=== PATIENT | female | born 2000 | race Caucasian/White ===

== ENCOUNTER 2019-12-31 19:13 | Emergency (ER) | payer MEDICARE, MEDICAID, SELFPAY ==
[2019-12-31 19:19] VITALS: BP 141/72; PULSE 99; RESP 19; TEMP 36.2; O2SAT 100
--- NOTE | 2019-12-31 19:49 | ED.BACK ---
HPI - Back Pain/Injury General Chief Complaint: Back Pain/Injury Stated Complaint: 5 weeks preg, back pain Time Seen by Provider: 12/31/19 19:37 History of Present Illness HPI Narrative: Bilateral midback pain. Present for quite some time. Worse over the past few days. No radiation. Worse with movment. Feels like pain from previous kidney infection. No dysuria, hematuria, fever, nausea. She is about five weeks . No abdominal pain, vaginal bleeding, discharge. Related Data Allergies Allergy/AdvReac Type Severity Reaction Status Date / Time No Known Allergies Allergy Verified 12/31/19 19:25 Review of Systems Review of Systems: All systems reviewed & are unremarkable except as noted in HPI and below Constitutional: Constitutional: Denies fever(s) and Denies weakness Cardiovascular: Cardiovascular: Denies chest pain Respiratory: Respiratory: Denies dyspnea Gastrointestinal: Gastrointestinal: Denies abdominal pain, Denies nausea and Denies vomiting Genitourinary: Genitourinary: Denies abnormal vaginal bleeding, Denies hematuria, Reports nocturia, Denies dysuria and Denies vaginal discharge Musculoskeletal: Musculoskeletal: Reports back pain Neurologic: Denies numbness and Denies weakness [facility] Social History Social History (Updated 01/01/20 @ 00:39 by Vinay Zheng MD) Smoking status: Never smoker Gender identity (if verbalized by the patient): Female Exam Const: General: healthy appearing, no acute distress and alert Nutritional Appearance: obese Orientation/consciousness: patient oriented x3 HENMT: Head: normal to inspection Resp: Effort & Inspection: normal respiratory effort Auscultation: clear to auscultation bilaterally Cardio: Rate: regular rate Rhythm: regular rhythm GI: Inspection: non-distended Other: Nontender Back/Spine/Pelvis: Back: no CVA tenderness Other: Thoracic paraspinal tenderness bilaterally. Neuro: General: patient oriented x3 and moves all extremities Speech: normal speech Extrem: General: normal to inspection Course Vital Signs Vital signs: Vital Signs Temperature 36.2 C L 12/31/19 19:19 Pulse Rate 99 12/31/19 19:19 Respiratory Rate 19 12/31/19 19:19 Blood Pressure 141/72 H 12/31/19 19:19 Pulse Oximetry 100 12/31/19 19:19 Temperature 36.2 C L 12/31/19 19:19 Pulse Rate 78 12/31/19 20:51 Respiratory Rate 18 12/31/19 20:51 Blood Pressure 138/72 12/31/19 20:51 Pulse Oximetry 99 12/31/19 20:51 MDM - Back Pain/Injury MDM Narrative Medical decision making narrative: Bedside Ultrasound consistent with early IUP. Possibly 6-8 weeks. No pole or FHR seen. No indication for trasvaginal US at this time UA negative for infection. Pain seems muscular. Differential Diagnosis Differential diagnosis: Likely renal colic, pyelonephritis and thoracic back pain Medical Records Attestation: I reviewed the patient's medical records. Lab Data Attestation: I reviewed the patient's lab results. Labs: Lab Results 12/31/19 Range/Units 19:44 Urine Color Yellow (Yellow) Urine Appearance Cloudy H (Clear) Urine pH 6.0 (5.0-9.0) Ur Specific [place] 1.021 (1.001-1.035) Urine Protein Negative (Negative) mg/dL Urine Glucose (UA) Negative (Negative) mg/dL Urine Ketones Negative (Negative) mg/dL Ur Blood (Man) Negative (Negative) Urine Nitrate Negative (Negative) Urine Bilirubin Negative (Negative) Urine Urobilinogen Negative (<2.0) mg/dL Leukocyte Esterase Rfl Trace H (Negative) LEWIS/UL Urine RBC 0-2 (0-2) /hpf Urine WBC 0-3 /hpf Ur Squamous Epith Cells Many H (Few) /hpf Urine Bacteria Trace /hpf Urine Mucus Rare /lpf Discharge Plan Discharge Clinical Impression: Back pain, thoracic Patient Disposition: Home, Self-Care Condition: Stable Instructions: Back Pain (ED) Prescriptions: New cyclobenzaprine 10 mg tablet 10 mg PO TID PRN (Reason: mu
[2019-12-31 19:59] LABS: Add Urine Microscopic? YES; Appearance Urine Cloudy (Clear); Bacteria Urine Trace /hpf; Bilirubin Urine Negative (Negative); Blood Urine Negative (Negative); Color Urine Yellow (Yellow); Glucose Urine UA Negative (Negative); Ketones Urine Negative (Negative); Leukocyte Esterase Ur Trace LEU/UL (Negative); Mucus Urine Rare /lpf; Nitrate Urine Negative (Negative); Protein Urine Negative (Negative); RBC Urine 0-2 /hpf (0-2); Specific Grav Ur 1.021 (1.001-1.035); Squamous Epithelial Cell Urine Many /hpf (Few); Urobilinogen Urine Negative mg/dL (<2.0); WBC Urine 0-3 /hpf
[2019-12-31] MEDS: CYCLOBENZAPRINE HCL 10 MG TABLET PO (20:45)
[2019-12-31 20:51] VITALS: BP 138/72; PULSE 78; RESP 18; O2SAT 99
== END 2019-12-31 20:53 | disposition home or self-care (01) ==
PROVIDERS: Emergency Provider Emergency Medicine
DX: M54.6 Pain in thoracic spine (principal)
CPT/HCPCS: 81001; 99283; A9270

== ENCOUNTER 2020-03-07 15:27 | Emergency (ER) | payer MEDICARE, MEDICAID, SELFPAY ==
[2020-03-07] VITALS (11 sets, daily range): BP systolic 122–149; BP diastolic 73–82; PULSE 82–96; RESP 16–18; TEMP 36.6–36.8; O2SAT 98–100
--- NOTE | 2020-03-07 16:40 | ED.ABDPAIN ---
HPI - Abdominal Pain General Chief Complaint: Abdominal Pain Stated Complaint: 15 WEEKS , CRAMPING Time Seen by Provider: 03/07/20 15:54 History of Present Illness HPI narrative: Patient is a 20-year-old female who presents ER with lower abdominal cramping. She is 15 weeks . She sees an OB at [facility]. She reports [place] when she started having the cramping. No vaginal bleeding or leakage of fluid. She has no urinary symptoms. She reports she had some eggs today and also had some water. No fevers or chills or sweats. Does not take any pain medication. Pain does radiate towards the back. She confirms that she has had a ultrasound showing an intrauterine . Related Data Home Medications Medication Instructions Recorded Confirmed Pre-F Vitamin 1 tablet DAILY 03/07/20 03/07/20 Allergies Allergy/AdvReac Type Severity Reaction Status Date / Time cat dander Allergy Difficulty Verified 03/07/20 16:05 Breathing prochlorperazine Allergy Hives Verified 03/07/20 16:05 [From Compazine] lurasidone AdvReac Nausea Verified 03/07/20 16:05 Review of Systems Review of Systems: All systems reviewed & are unremarkable except as noted in HPI and below Constitutional: Constitutional: Denies chills, Denies fever(s) and Denies weakness Gastrointestinal: Gastrointestinal: Reports abdominal pain, Denies diarrhea, Denies nausea and Denies vomiting Genitourinary: Genitourinary: Denies abnormal vaginal bleeding, Denies nocturia, Denies dysuria and Denies vaginal discharge PMFSH Past Medical History Medical History (Updated 03/07/20 @ 18:20 by Gold Segovia MD) Healthy female adult Surgical History Surgical History (Updated 03/07/20 @ 16:46 by Gold Segovia MD) No history of previous surgery Social History Social History (Updated 01/01/20 @ 00:39 by Vinay Zheng MD) Smoking status: Never smoker Gender identity (if verbalized by the patient): Female Exam Narrative: Exam Narrative: GENERAL: Well-appearing, well-nourished, and in no acute distress. HEAD: Normocephalic, atraumatic. CHEST: Clear to auscultation. No respiratory distress. HEART: Regular rate and rhythm. Normal peripheral pulses. ABDOMEN: Soft, nontender, nondistended. EXTREMITIES: Normal range of motion. No edema. SKIN: Warm, dry, no rash. NEURO: Alert and oriented x3. PSYCH: Normal mood and affect. Course Course Emergency Course: Patient informed results. Feels better after Tylenol and IV fluid. heart tones identified. Discharge home. Vital Signs Vital signs: Vital Signs Temperature 98.2 F 03/07/20 15:52 Pulse Rate 82 03/07/20 15:52 Respiratory Rate 17 03/07/20 15:52 Blood Pressure 149/82 H 03/07/20 15:52 Pulse Oximetry 100 03/07/20 15:52 Temperature 97.8 F 03/07/20 15:59 Pulse Rate 82 03/07/20 15:52 Respiratory Rate 18 03/07/20 15:59 Blood Pressure 122/73 03/07/20 16:16 Pulse Oximetry 100 03/07/20 16:30 MDM - Abdominal Pain Lab Data Result diagrams: 03/07/20 16:35 03/07/20 16:35 Labs: Lab Results 03/07/20 03/07/20 03/07/20 Range/Units 16:35 16:35 17:24 WBC 7.6 (4.5-10.0) K/mm3 RBC 4.07 L (4.2-5.4) M/mm3 Hgb 12.6 (12.0-15.0) g/dL Hct 36.0 L (37.0-47.0) % MCV 88.5 (80-100) fl MCH 31.0 (26-34) pg MCHC 35.0 (32-36) g/dl RDW 12.0 (11.5-14.5) % Plt Count 242 (150-375) k/mm3 MPV 9.6 (7.4-10.4) fl Immature Gran % (Auto) 0.5 (0-0.5) % Neut % (Auto) 61.8 (45.5-73.1) % Lymph % (Auto) 27.4 (18.3-44.2) % [place] % (Auto) 7.2 (2.6-8.5) % Eos % (Auto) 2.6 (0-4.4) % Baso % (Auto) 0.5 (0.2-1.2) % Lymph # (Auto) 2.09 (0.9-3.2) K/mm3 [place] # (Auto) 0.6 (0.1-0.6) K/mm3 Eos # (Auto) 0.2 (0-0.3) K/mm3 Baso # (Auto) 0.0 (0.0-0.1) K/mm3 Abs Immat Gran (auto) 0.04 H
[2020-03-07 16:42] LABS: Basophils Percent Auto 0.5 % (0.2-1.2); Eosinophils Absolute Auto 0.2 K/mm3 (0-0.3); Eosinophils Percent Auto 2.6 % (0-4.4); Hemoglobin 12.6 g/dL (12.0-15.0); Immature Granulocyte Absolute 0.04 K/mm3 (0.00-0.031); Immature Granulocyte Percent A 0.5 % (0-0.5); Lymphocytes Absolute Auto 2.09 K/mm3 (0.9-3.2); Lymphocytes Percent Auto 27.4 % (18.3-44.2); Mean Corpuscular Volume 88.5 fl (80-100); Mean Platelet Volume 9.6 fl (7.4-10.4); Monocytes Absolute Auto 0.6 K/mm3 (0.1-0.6); Monocytes Percent Auto 7.2 % (2.6-8.5); Neutrophils Absolute Auto 4.7 K/mm3 (1.3-6.7); Neutrophils Percent Auto 61.8 % (45.5-73.1); Platelet Count Result 242 k/mm3 (150-375); Red Blood Count 4.07 M/mm3 (4.2-5.4); White Blood Count 7.6 K/mm3 (4.5-10.0)
[2020-03-07 16:53] LABS: Anion Gap 9 mmol/L (8-16); Blood Urea Nitrogen 9 mg/dL (7-17); Calcium 9.4 mg/dL (8.4-10.2); Carbon Dioxide 23 mmol/L (22-30); Chloride 105 mmol/L (98-107); Estimated CRCL calculation 209 ml/min; Estimated Glomerular Filt Rate > 60; Glucose 89 mg/dL (65-105); Potassium 3.8 mmol/L (3.4-5.0); Sodium 137 mmol/L (137-145)
[2020-03-07] MEDS: SODIUM CHLORIDE 0.9% IV 1,000 ML 999 ML IV CONT (16:58)
[2020-03-07] MEDS: ACETAMINOPHEN 500 MG TABLET 1000 MG PO (16:58)
--- NOTE | 2020-03-07 17:02 | PC.NURSE ---
patient given tylenol. IVF started. patient reminded we need urine specimen. ice water given. friend in room. call light in reach.
[2020-03-07 17:44] LABS: Add Urine Microscopic? YES; Appearance Urine Clear (Clear); Bacteria Urine Trace /hpf; Bilirubin Urine Negative (Negative); Blood Urine Negative (Negative); Color Urine Yellow (Yellow); Glucose Urine UA Negative (Negative); Ketones Urine 1+ mg/dL (Negative); Leukocyte Esterase Ur Trace LEU/UL (Negative); Mucus Urine Rare /lpf; Nitrate Urine Negative (Negative); Protein Urine Negative (Negative); RBC Urine 0-2 /hpf (0-2); Squamous Epithelial Cell Urine Many /hpf (Few); Urobilinogen Urine Negative mg/dL (<2.0)
== END 2020-03-07 18:47 | disposition home or self-care (01) ==
PROVIDERS: Emergency Provider Emergency Medicine
DX: O26.892 Other specified pregnancy related conditions, second trimester (principal); R10.2 Pelvic and perineal pain; O99.282 Endocrine, nutritional and metabolic diseases complicating pregnancy, second trimester; E86.0 Dehydration; Z3A.15 15 weeks gestation of pregnancy
CPT/HCPCS: 36415; 80048; 81001; 85025; 96360; 99283; A9270; J7030

== ENCOUNTER 2020-05-02 22:10 | Observation (INO) | payer MEDICARE, MEDICAID, SELFPAY ==
[2020-05-02 22:31] VITALS: BP 122/68; PULSE 86
[2020-05-02 22:44] VITALS: BP 111/78; PULSE 82
[2020-05-02 22:45] VITALS: BMI 41.1
--- NOTE | 2020-05-02 22:45 | LDADM ---
This patient, Lilliam Gomez, was admitted to OB Post 117 on 05/02/20 at 22:10. Plans for labor, pain management and were discussed with patient. Patient/family oriented to hospital policies and general routines including ID bracelet, bed and alarms, visiting hours, pain management, procedures, bathroom and other care routines, personal items, smoking policy, room service/diet and guest tray routines, infant security routines, and visiting hours. Patient/Family are encouraged to report perceived risks to care and to ask questions if they do not understand what they are told or what they should do. See OBIX for further documentation.
--- NOTE | 2020-05-02 23:15 | PC.NURSE ---
2209- pt came in c/o abd pain due to 14mo. old jumping on side of abdomen. pt states that she feels pulling in lower abdomen like round ligament pain and lower back pain. she also states that she really hasn't felt baby move a whole lot either. no complications with . no vaginal bleeding. 2237- Called Dr. Hamilton- informed of patient admission. pt sees Dr. Rolon at [facility]- was told to come to nearest hospital for eval. pt doing better since hearing heart tones. heart tones doppled- 150's. pt stated that she was just scared. pt ok to d/c home and to f/u with OB in am.
--- NOTE | 2020-05-30 20:09 | PM.OBTRLD ---
OB - Triage/Final Diagnosis Final Diagnosis (1) Abdominal pain: Code(s): R10.9 - Unspecified abdominal pain Status: Acute
== END 2020-05-02 23:15 | disposition home or self-care (01) ==
PROVIDERS: Admitting Provider Obstetrics & Gynecology; Visit Provider Obstetrics & Gynecology
DX: O26.899 Other specified pregnancy related conditions, unspecified trimester (principal); R10.9 Unspecified abdominal pain; Z3A.00 Weeks of gestation of pregnancy not specified
CPT/HCPCS: G0378; G0379

== ENCOUNTER 2020-06-11 14:20 | Observation (INO) | payer MEDICARE, MEDICAID, SELFPAY ==
[2020-06-11] VITALS (28 sets, daily range): BP systolic 105–115; BP diastolic 47–87; PULSE 78–107; RESP 20; TEMP 36.6–36.8; O2SAT 97–100; BMI 41.9
--- NOTE | 2020-06-11 14:40 | OBADM ---
This patient, Lilliam Gomez, admitted to the OB room 117 at 1420 for observation post fall and c/o shortness of breath. Patient/family oriented to hospital policies and general routines including ID bracelet, bed and alarms, visiting hours, pain management, procedures, bathroom and other care routines, personal items, smoking policy, room service/diet, and visiting hours. Patient/Family are encouraged to report perceived risks to care and to ask questions if they do not understand what they are told or what they should do.
--- NOTE | 2020-06-11 15:15 | ECG_ITS ---
Measurements Intervals Brick Rate: 79 P: 3 AL: 160 QRS: 32 QRSD: 93 T: 2 QT: 356 QTc: 409 Interpretive Statements SINUS RHYTHM BORDERLINE ST-T WAVE ABNORMALITY- INFERIOR LEADS BASELINE ARTIFACT- I, III, AVR, AVL, AVF, V1, V4 BORDERLINE ECG Electronically Signed On 06-15-2020 7:24:41 [employer] H[employer] INSPECTOR by Tyler Wilson D.O.
--- NOTE | 2020-06-11 15:35 | PC.NURSE ---
RT here performing nebulizer treatment on pt.
--- NOTE | 2020-06-11 15:37 | PC.NURSE ---
Cardiology in and EKG done.
[2020-06-11] MEDS: ACETAMINOPHEN 500 MG TABLET 1000 MG PO (17:02)
[2020-06-13 00:20] LABS: SARS-CoV-2 RNA PCR Negative
--- NOTE | 2020-06-18 07:35 | PM.OBTRLD ---
OB - Triage/Final Diagnosis Visit Information Date of evaluation: 06/11/20 Reason for evaluation: other Comments/Additional reasons for admission: I have assessed the risk for this patient, Lilliam Gomez, and determined that she would benefit from observation care, sob Evaluation Laboratory results: Laboratory Tests 06/11/20 15:40 SARS-CoV-2 RNA (RT-PCR) Negative
== END 2020-06-11 19:52 | disposition home or self-care (01) ==
PROVIDERS: Admitting Provider Obstetrics & Gynecology; Visit Provider Obstetrics & Gynecology
DX: O26.893 Other specified pregnancy related conditions, third trimester (principal); R06.02 Shortness of breath; Z3A.29 29 weeks gestation of pregnancy; Z20.822 Contact with and (suspected) exposure to COVID-19
CPT/HCPCS: 93005; 94640; A9270; C9803; G0378; G0379; U0003; U0005

== ENCOUNTER 2020-07-17 01:01 | Observation (INO) | payer MEDICARE, MEDICAID, SELFPAY ==
--- NOTE | 2020-07-17 01:01 | OBADM ---
This patient, Lilliam Gomez, admitted to the OB room Labor/Delivery/Recovery 105 for observation. Patient/family oriented to hospital policies and general routines including ID bracelet, bed and alarms, visiting hours, pain management, procedures, bathroom and other care routines, personal items, smoking policy, room service/diet, and visiting hours. Patient/Family are encouraged to report perceived risks to care and to ask questions if they do not understand what they are told or what they should do.
[2020-07-17 01:20] VITALS: BP 115/60; PULSE 172; RESP 20; TEMP 36.3
[2020-07-17 01:21] VITALS: PULSE 92
[2020-07-17 01:30] VITALS: BMI 42.3
--- NOTE | 2020-07-20 17:08 | PM.OBTRLD ---
OB - Triage/Final Diagnosis Visit Information Date of evaluation: 07/17/20 Reason for evaluation: threatened labor Comments/Additional reasons for admission: I have assessed the risk for this patient, Lilliam Gomez, and determined that she would benefit from observation care.
== END 2020-07-17 02:29 | disposition home or self-care (01) ==
PROVIDERS: Admitting Provider Obstetrics & Gynecology; Visit Provider Obstetrics & Gynecology
DX: O47.03 False labor before 37 completed weeks of gestation, third trimester (principal); Z3A.34 34 weeks gestation of pregnancy
CPT/HCPCS: 84112; G0378; G0379

== ENCOUNTER 2020-08-12 05:11 | Observation (INO) | payer MEDICARE, MEDICAID, SELFPAY ==
[2020-08-12] VITALS (17 sets, daily range): BP systolic 110–122; BP diastolic 67–80; PULSE 72–158; TEMP 36.4; O2SAT 100; BMI 44.6
--- NOTE | 2020-08-12 07:55 | OBADM ---
This patient, Lilliam Gomez, admitted to the OB room 102 at 0511 for observation for contractions and back pain. Patient/family oriented to hospital policies and general routines including ID bracelet, bed and alarms, visiting hours, pain management, procedures, bathroom and other care routines, personal items, smoking policy, room service/diet, and visiting hours. Patient/Family are encouraged to report perceived risks to care and to ask questions if they do not understand what they are told or what they should do.
[2020-08-12] MEDS: ONDANSETRON HCL ODT 4 MG TABLET PO (07:59)
[2020-08-12] MEDS: ACETAMINOPHEN 500 MG TABLET 1000 MG PO (08:33)
--- NOTE | 2020-09-07 12:33 | PM.OBTRLD ---
OB - Triage/Final Diagnosis Visit Information Comments/Additional reasons for admission: I have assessed the risk for this patient, Lilliam Gomez, and determined that she would benefit from observation care. Final Diagnosis (1) Pelvic pain: Code(s): R10.2 - Pelvic and perineal pain Status: Acute
== END 2020-08-12 11:09 | disposition home or self-care (01) ==
PROVIDERS: Admitting Provider Obstetrics & Gynecology; Visit Provider Obstetrics & Gynecology
DX: O26.893 Other specified pregnancy related conditions, third trimester (principal); R10.2 Pelvic and perineal pain; Z3A.37 37 weeks gestation of pregnancy
CPT/HCPCS: A9270; G0378; G0379

== ENCOUNTER 2020-08-20 05:52 | Inpatient (IN) | payer MEDICARE, MEDICAID, SELFPAY ==
[2020-08-20] VITALS (115 sets, daily range): BP systolic 58–149; BP diastolic 29–112; PULSE 76–233; RESP 20; TEMP 36.5–37.1; O2SAT 98–100; BMI 44.6
[2020-08-20] MEDS: LACTATED RINGERS 1,000 ML 125 ML IV CONT ×4 (06:50→23:04)
[2020-08-20] MEDS: OXYTOCIN 30 UNITS/NS 500 ML 30 UNITS/500 ML BAG IV CONT (06:51)
[2020-08-20 07:05] LABS: Basophils Percent Auto 0.4 % (0.2-1.2); Eosinophils Absolute Auto 0.1 K/mm3 (0-0.3); Eosinophils Percent Auto 1.2 % (0-4.4); Hematocrit 31.6 % (37.0-47.0); Hemoglobin 10.6 g/dL (12.0-15.0); Immature Granulocyte Percent A 1.1 % (0-0.5); Lymphocytes Absolute Auto 2.12 K/mm3 (0.9-3.2); Lymphocytes Percent Auto 23.7 % (18.3-44.2); Mean Corpuscular HGB Conc 33.5 g/dl (32-36); Mean Corpuscular Hemoglobin 28.6 pg (26-34); Mean Corpuscular Volume 85.2 fl (80-100); Mean Platelet Volume 9.6 fl (7.4-10.4); Monocytes Absolute Auto 0.8 K/mm3 (0.1-0.6); Monocytes Percent Auto 9.4 % (2.6-8.5); Neutrophils Absolute Auto 5.7 K/mm3 (1.3-6.7); Neutrophils Percent Auto 64.2 % (45.5-73.1); Platelet Count Result 218 k/mm3 (150-375); Red Blood Count 3.71 M/mm3 (4.2-5.4); Red Cell Distribution Width 12.5 % (11.5-14.5); White Blood Count 8.9 K/mm3 (4.5-10.0)
--- NOTE | 2020-08-20 07:05 | LDADM ---
This patient, Lilliam Gomez, was admitted to Labor/Delivery/Recovery 103 on 08/20/20 at 05:52. Plans for labor, pain management and were discussed with patient. Patient/family oriented to hospital policies and general routines including ID bracelet, bed and alarms, visiting hours, pain management, procedures, bathroom and other care routines, personal items, smoking policy, room service/diet and guest tray routines, infant security routines, and visiting hours. Patient/Family are encouraged to report perceived risks to care and to ask questions if they do not understand what they are told or what they should do. See OBIX for further documentation.
--- NOTE | 2020-08-20 07:16 | WPDANESEPP ---
Anes - Eval Pre Procedure Procedure: Labor epidural Date/Time: 08/20/20 07:16 Surgeon: Cristopher Preop Diagnosis: pain during labor Pre Op Diagnosis: Induction of Labor Patient Data Age: 20 Gender: F Height: 1.73 m Weight: 133 kg Last Vital Signs Pulse 91 08/20/20 07:16 BP 127/81 08/20/20 07:16 Allergies Allergy/AdvReac Type Severity Reaction Status Date / Time cat dander Allergy Difficulty Verified 08/10/20 12:44 Breathing prochlorperazine Allergy Hives Verified 08/10/20 12:44 [From Compazine] lurasidone AdvReac Nausea Verified 08/10/20 12:44 Home Medications Medication Instructions Recorded Confirmed Type PNV cmb#95-ferrous fumarate-FA 1 tablet PO DAILY 06/11/20 08/12/20 History [] albuterol sulfate [Ventolin HFA] 2 puff INHALATION Q4H PRN 06/11/20 08/12/20 History sertraline 100 mg PO HS 06/11/20 08/12/20 History fluticasone propion-salmeterol 1 inh INHALATION PRN PRN 07/17/20 08/12/20 History Unisom (doxylamine) 25 mg PO HS PRN 08/10/20 08/12/20 History melatonin 10 mg PO HS PRN 08/12/20 08/12/20 History Laboratory Tests 08/20/20 08/20/20 08/20/20 06:47 06:47 06:47 WBC 8.9 K/mm3 K/mm3 (4.5-10.0) RBC 3.71 M/mm3 L M/mm3 (4.2-5.4) Hgb 10.6 g/dL L g/dL (12.0-15.0) Hct 31.6 % L % (37.0-47.0) MCV 85.2 fl fl (80-100) MCH 28.6 pg pg (26-34) MCHC 33.5 g/dl g/dl (32-36) RDW 12.5 % % (11.5-14.5) Plt Count 218 k/mm3 k/mm3 (150-375) MPV 9.6 fl fl (7.4-10.4) Immature Gran % (Auto) 1.1 % H % (0-0.5) Neut % (Auto) 64.2 % % (45.5-73.1) Lymph % (Auto) 23.7 % % (18.3-44.2) [place] % (Auto) 9.4 % H % (2.6-8.5) Eos % (Auto) 1.2 % % (0-4.4) Baso % (Auto) 0.4 % % (0.2-1.2) Lymph # (Auto) 2.12 K/mm3 K/mm3 (0.9-3.2) [place] # (Auto) 0.8 K/mm3 H K/mm3 (0.1-0.6) Eos # (Auto) 0.1 K/mm3 K/mm3 (0-0.3) Baso # (Auto) 0.0 K/mm3 K/mm3 (0.0-0.1) Abs Immat Gran (auto) 0.10 K/mm3 H K/mm3 (0.00-0.031) Absolute Neuts (auto) 5.7 K/mm3 K/mm3 (1.3-6.7) Absolute Nucleated RBC 0.0 K/mm3 K/mm3 (0.0-0.012) Nucleated RBC % 0.0 % % (0.0-0.2) RPR Pending Blood Type Pending Antibody Screen Pending Patient hx anesthesia problems: none Family hx anesthesia problems: none PMFSH Past Medical History Medical History (Updated 08/20/20 @ 07:19 by Trinidad Mclaughlin CRNA) Asthma Depression Healthy female adult Morbid obesity Surgical History Surgical History (Updated 03/07/20 @ 16:46 by Gold Segovia MD) No history of previous surgery Family History Family History (Updated 08/10/20 @ 12:47 by Polo Godoy RN) Mother Arthritis, rheumatoid Lupus Sibling Heart murmur Social History Social History (Updated 01/01/20 @ 00:39 by Vinay Zheng MD) Smoking status: Former smoker Substance use: never Gender identity (if verbalized by the patient): Female Spiritual care concerns: No Exam Day of Procedure 08/20/20 07:16
--- NOTE | 2020-08-20 09:58 | WPDOBADMIT ---
Obstetrics - Admit Note Admission Note: 20 y/o @ 39 weeks here for induction of labor. record reviewed. No pertinent additions to the history and/or any subsequent changes in the physical findings that are not consistent with the expected course of the were found. Additions to the history and/or subsequent changes in the physical findings follow. None.
--- NOTE | 2020-08-20 09:58 | PM.IMHP ---
H&P: HPI History of Present Illness Date/Time: 08/20/20 09:58 Chief Complaint: Term . Induction of labor. Review of Systems Review of Systems: All systems reviewed & are unremarkable except as noted in HPI and below PMFSH Past Medical History Medical History Asthma Depression Healthy female adult Morbid obesity Surgical History Surgical History No history of previous surgery Family History Family History Mother Arthritis, rheumatoid Lupus Sibling Heart murmur Social History Social History Smoking status: Former smoker Substance use: never Gender identity (if verbalized by the patient): Female Spiritual care concerns: No Comments complicated by polyhydramnios and LGA. Meds Home Medications and Allergies Home Medications Medication Instructions Recorded Confirmed Type PNV cmb#95-ferrous fumarate-FA 1 tablet PO DAILY 06/11/20 08/12/20 History [] albuterol sulfate [Ventolin HFA] 2 puff INHALATION Q4H PRN 06/11/20 08/12/20 History sertraline 100 mg PO HS 06/11/20 08/12/20 History fluticasone propion-salmeterol 1 inh INHALATION PRN PRN 07/17/20 08/12/20 History Unisom (doxylamine) 25 mg PO HS PRN 08/10/20 08/12/20 History melatonin 10 mg PO HS PRN 08/12/20 08/12/20 History Allergies Allergy/AdvReac Type Severity Reaction Status Date / Time cat dander Allergy Difficulty Verified 08/10/20 12:44 Breathing prochlorperazine Allergy Hives Verified 08/10/20 12:44 [From Compazine] lurasidone AdvReac Nausea Verified 08/10/20 12:44 Vital Signs Vital Signs - 24 hr 08/20/20 06:13 08/20/20 06:15 08/20/20 06:45 Temperature Pulse Rate 101 H 97 103 H Blood Pressure 132/75 123/72 119/73 08/20/20 06:51 08/20/20 07:01 08/20/20 07:16 Temperature 97.9 F Pulse Rate 96 91 Blood Pressure 114/76 127/81 08/20/20 07:30 08/20/20 07:45 08/20/20 08:16 Temperature Pulse Rate 115 H 90 91 Blood Pressure 118/87 123/66 128/83 08/20/20 08:31 08/20/20 08:45 08/20/20 09:00 Temperature Pulse Rate 94 86 120 H Blood Pressure 115/57 L 121/72 111/84 Exam Narrative: Exam Narrative: FHR category 1 Uterine contractions regular and soft in between U/S @ bedside verified vertex presentation Const: General: no acute distress Resp: Effort & Inspection: normal respiratory effort Auscultation: clear to auscultation bilaterally Cardio: Rate: regular rate Rhythm: regular rhythm Skin: General skin exam: normal color Neuro: General: gait normal Extrem: Right lower extremity: edema Left lower extremity: edema Psych: Mental Status: mental status grossly normal H&P: Results Labs Labs: Short CBC 08/20/20 Range/Units 06:47 WBC 8.9 (4.5-10.0) K/mm3 Hgb 10.6 L (12.0-15.0) g/dL Hct 31.6 L (37.0-47.0) % Plt Count 218 (150-375) k/mm3 Assessment and Plan Additional Plan Proceed with induction of labor. Controlled arom with MD present.
[2020-08-20 10:34] LABS: HIV 1/2 Ab P24 Ag Result Negative (Negative)
[2020-08-20 13:50] LABS: Rapid Plasma Reagin Non-Reactive (NonReactive)
[2020-08-20] MEDS: fentaNYL CITRATE INJ (*CRX) 100 MCG/2 ML VIAL 50 MCG IV PUSH (16:10)
[2020-08-20] MEDS: ONDANSETRON INJ 4 MG/2 ML VIAL IV PUSH (22:02)
[2020-08-21] VITALS (50 sets, daily range): BP systolic 80–156; BP diastolic 41–113; PULSE 80–141; RESP 16–20; TEMP 36.1–37.4; O2SAT 87–100
[2020-08-21] MEDS: OXYTOCIN 30 UNITS/NS 500 ML 30 UNITS/500 ML BAG 125 UNITS IV CONT (01:14)
--- NOTE | 2020-08-21 01:19 | PM.OBPRVD ---
OB - Delivery Note Procedure Delivery date: 08/21/20 events: Polyhydramnios Intrapartal events: None Induction method: AROM and per pitocin protocol Delivery monitor: external FHT, external uterine, internal FHT and internal uterine Route of delivery: Episiotomy description: None Laceration Description: Perineal - 1st Degree Anesthesia type: Epidural Narrative: Mother and baby in stable conditon. Cord gasses collected and handed off to staff. [place] Baby Date of : 08/21/20 Time of : 00:54 Weeks of gestation at delivery: 39 gender: Male Weight (pounds): 9 Weight (ounces): 6 presentation: vertex position: Right Occiput Anterior Placenta delivery description: Spontaneous cord vessel description: Nuchal Cord and Tight (Delivered through) score one minute: 7 score five minutes: 8
[2020-08-21] MEDS: ACETAMINOPHEN 325 MG TABLET 650 MG PO ×2 (02:23→21:54)
--- NOTE | 2020-08-21 03:37 | OBPPTRN ---
Patient transferred to post room #280 via wheelchair with in crib. Support is not present but will return in the morning - pt's grandma has second bracelet. Oriented to unit, room, information board, rooming in, admission packet and security measures. Patient verbalizes understanding.
[2020-08-21] MEDS: IBUPROFEN 600 MG TABLET PO ×3 (04:15→19:11)
[2020-08-21] MEDS: MULTIVIT/MIN/PREN/FOL AC/IRON TABLET 1 TAB PO (10:49)
--- NOTE | 2020-08-21 11:48 | P.PNOB_ITS ---
OB - PN: Subj Subjective Date/time seen: 08/21/20 11:48 Patient comments: no complaints baby status: doing well OB - PN: Obj Data Labs CBC & Chem 7: 08/20/20 06:47 Labs: Laboratory Results - last 24 hr 08/20/20 06:47 RPR Non-reactive OB - PN A/P Plan day: 1 Plan: routine care Time Spent With Patient Time: Total time spent is greater than 50% in coordination of care (as doc umented) at patient's floor/unit and/or counseling patient: Time with patient: less than 15 minutes Review of Systems Review of Systems: All systems reviewed & are unremarkable except as noted in HPI and below Exam Narrative: Exam Narrative: Fundus firm and vaginal flow controlled. No lower ext redness, warmth, or edema. Negative homans. Const: General: comfortable Chest: Breast/axilla inspection: normal inspection of the breasts Resp: Effort & Inspection: normal respiratory effort Cardio: Rate: regular rate GI: GI Palp: Yes Soft to palpation Psych: Appearance: grossly normal Affect: normal affect Attitude: cooperative Thought content: Yes Normal thought content present Judgement: Good judgement present (Psych)
[2020-08-21] MEDS: SERTRALINE HCL 50 MG TABLET 100 MG PO (21:49)
[2020-08-21] MEDS: TETANUS,DIPHTHERIA,AC PERTUSSIS ADULT (0.5 ML) BOOSTRIX IM (21:57)
--- NOTE | 2020-08-21 22:31 | PC.NURSE ---
Patient viewed the discharge video Mother & Baby Care, The First Two Weeks . Patient was given the opportunity and encouraged to ask questions. Patient verbalized understanding of information shared and has been given the mother/baby guide for home reference.
[2020-08-22 00:25] VITALS: BP 146/89; PULSE 86; RESP 18; TEMP 36.3; O2SAT 99
[2020-08-22 05:00] LABS: Hematocrit 29.2 % (37.0-47.0); Hemoglobin 9.4 g/dL (12.0-15.0)
[2020-08-22 07:00] VITALS: BP 139/70; PULSE 80; RESP 16; TEMP 36.1; O2SAT 99
[2020-08-22] MEDS: POLYSACCHARIDE IRON COMPLEX 150 MG CAPSULE PO (07:12)
[2020-08-22] MEDS: IBUPROFEN 600 MG TABLET PO (07:12)
[2020-08-22] MEDS: DOCUSATE SODIUM 100 MG CAPSULE PO (07:12)
[2020-08-22] MEDS: MULTIVIT/MIN/PREN/FOL AC/IRON TABLET 1 TAB PO (07:12)
[2020-08-22] MEDS: WITCH HAZEL 40 PADS 1 PAD TOPICAL (07:13)
[2020-08-22] MEDS: BENZOCAINE 20% AER SPR (*SP) 56 GM CAN 1 SPRAY TOPICAL (07:13)
--- NOTE | 2020-08-22 09:20 | PM.OBPNVD ---
OB - PN: Subj Subjective Date/time seen: 08/22/20 09:20 Patient comments: no complaints baby status: doing well OB - PN: Obj Data Labs CBC & Chem 7: 08/22/20 04:53 Labs: Laboratory Results - last 24 hr 08/22/20 04:53 Hgb 9.4 L Hct 29.2 L OB - PN A/P Plan day: 2 Plan: routine care and discharge home (F/U in 4 weeks) Time Spent With Patient Time: Total time spent is greater than 50% in coordination of care (as documented) at patient's floor/unit and/or counseling patient: Time with patient: less than 15 minutes Review of Systems Review of Systems: All systems reviewed & are unremarkable except as noted in HPI and below Exam Narrative: Exam Narrative: Fundus firm and vaginal flow controlled. No lower ext redness, warmth, or edema. Negative homans. Const: General: comfortable Chest: Breast/axilla inspection: normal inspection of the breasts Resp: Effort & Inspection: normal respiratory effort Cardio: Rate: regular rate GI: GI Palp: Yes Soft to palpation Psych: Appearance: grossly normal Affect: normal affect Attitude: cooperative Thought content: Yes Normal thought content present Judgement: Good judgement present (Psych)
--- NOTE | 2020-08-22 09:22 | PM.OBDSVD ---
DS: Admitting Diagnosis Admitting Diagnosis Admitting Diagnosis: Induction of labor DS: Discharge Diagnosis Discharge Diagnosis (1) Vaginal delivery: Code(s): O80 - Encounter for full-term uncomplicated delivery Status: Acute OB - DS: Summary OB Procedures : None OB Procedures Intrapartum: Spontaneous Vag Delivery OB Procedures: : None Time Spent with Patient Time attestation: Total time spent providing and/or coordinating discharge services: DS: Data Data Completed and Pending Pending studies at discharge: Pending at discharge 08/21/20 02:19 Surgical [PTH] Routine Labs on day of discharge: Labs from last 24 hours 08/22/20 04:53 Hgb 9.4 L Hct 29.2 L Discharge Plan Discharge Attending physician on discharge: Camilla Silverman Discharging Clinician: Camilla Silverman Patient Disposition: Home, Self-Care Activity: pelvic rest Diet: as tolerated Patient Instructions: Antibiotic Form Stand Alone Forms: General Discharge Information Follow-up/Referrals: Camilla Silverman, CNM [Certified Nurse Macadam Raker] - Discharge Medications: New polysaccharide iron complex 150 mg iron Capsule 150 mg PO BIDWM Qty: 60 RF: 0 Continued albuterol sulfate [Ventolin HFA] 90 mcg/actuation HFA aerosol inhaler 2 puff INHALATION Q4H PRN (Reason: Shortness Of Breath) RF: 0 sertraline 50 mg tablet 100 mg PO HS RF: 0 PNV cmb#[id number]-ferrous fumarate-FA [] 28 mg iron- 800 mcg Tablet 1 tablet PO DAILY RF: 0 fluticasone propion-salmeterol 113-14 mcg/actuation aerosol powdr breath activated 1 inh INHALATION PRN PRN (Reason: Shortness Of Breath) RF: 0 Discontinued Unisom (doxylamine) 25 mg Tablet 25 mg PO HS PRN (Reason: Insomnia) RF: 0 melatonin 10 mg Tablet 10 mg PO HS PRN (Reason: Sleep) RF: 0 Date of admission: 08/20/20 05:52 Primary Care Provider: PHYSICIAN,MULTI OPERATION MACHINE OPERATOR Admitting Provider: Ivory Nicholas Attending physician on admission: Ivory Nicholas Condition: Stable
[2020-08-24 10:29] VITALS: BP 128/75; PULSE 91; RESP 20; TEMP 37.1; O2SAT 99
== END 2020-08-22 13:21 | disposition home or self-care (01) | DRG 807 ==
LOC: ANHLDR 06:05 → ANHOB2 08-21 04:17
PROVIDERS: Advanced Practice Midwife; Admitting Provider Obstetrics & Gynecology; Visit Provider Obstetrics & Gynecology
DX: O40.3XX0 Polyhydramnios, third trimester, not applicable or unspecified (principal); Z37.0 Single live birth; Z3A.39 39 weeks gestation of pregnancy; O36.8330 Maternal care for abnormalities of the fetal heart rate or rhythm, third trimester, not applicable or unspecified; O70.0 First degree perineal laceration during delivery; O36.63X0 Maternal care for excessive fetal growth, third trimester, not applicable or unspecified; O99.214 Obesity complicating childbirth; E66.01 Morbid (severe) obesity due to excess calories; O69.1XX0 Labor and delivery complicated by cord around neck, with compression, not applicable or unspecified
CPT/HCPCS: 36415; 85014; 85018; 85025; 86592; 86703; 86850; 86900; 86901; 88307; 90715; A9270; G0432; J2405; J2590; J2795; J3010; J7120